=== PATIENT | female | born 1960 | race Caucasian/White ===

== ENCOUNTER → 2017-10-13 | Outpatient (CLI) | payer BC ==
[~2017-10-13] MED LIST: ASPI81EC; BENADRYL25 MG; CHOL10002; CYCL10 PO; EZET10; FEXPSEER; HYDACE5 PO; IBUP800 PO; LISI10; LORA10ER; Mirena1 EACH; Multivitamin1 EAC1; NAPR500 PO; ONDA4 PO; ONDA4ODT MM; Omega 3 Fish O1 EACH; PANT40 PO; PROM25 PO; PSEU30; ROSI4; ROSU10TA; RXCYCL10 PO; RXHYDACE PO
== END ==
LOC: PLD 07:31 → LAB SHORT 07:31
DX: D48.5 Neoplasm of uncertain behavior of skin (principal)
CPT/HCPCS: 88305

== ENCOUNTER → 2017-11-27 | Outpatient (CLI) | payer BC ==
[2017-12-01 15:07] LABS: HPV 16 Negative (Negative); HPV 18 Negative (Negative); HPV OTHER HR TYPES Negative (Negative)
== END | disposition home or self-care (01) ==
LOC: LAB 13:54 → LAB SHORT 13:54
PROVIDERS: Obstetrics & Gynecology Gynecology
DX: Z01.419 Encounter for gynecological examination (general) (routine) without abnormal findings (principal)
CPT/HCPCS: 87624; G0123

== ENCOUNTER → 2018-11-27 | Outpatient (CLI) | payer BC ==
[2018-12-02 08:08] LABS: HPV 16 Negative (Negative); HPV 18 Negative (Negative); HPV OTHER HR TYPES Negative (Negative)
== END | disposition home or self-care (01) ==
LOC: LAB 14:00 → LAB SHORT 14:00
PROVIDERS: Obstetrics & Gynecology Gynecology
DX: Z12.4 Encounter for screening for malignant neoplasm of cervix (principal)
CPT/HCPCS: 87624; G0123

== ENCOUNTER → 2022-01-21 | Outpatient (CLI) | payer BC ==
[~2022-01-21] MED LIST changes: +AZIT250 PO; +Tessalon Perle100 MG PO
[2022-01-24 17:10] LABS: HPV 16 Negative (Negative); HPV 18 Negative (Negative); HPV OTHER HR TYPES Negative (Negative)
== END ==
LOC: LAB SHORT 17:25 → LAB 17:25
PROVIDERS: Obstetrics & Gynecology
DX: Z01.419 Encounter for gynecological examination (general) (routine) without abnormal findings (principal)
CPT/HCPCS: 87624; G0123